=== PATIENT | male | born 1955 | race American Indian/Alaskan Native ===

== ENCOUNTER 2019-02-10 09:46 | Day surgery (SDC) | payer OTHER ==
--- NOTE | 2019-02-10 10:46 | Anesthesia Day of Surgery ---
Anesthesia Day of Surgery - Day of Surgery Patient Examined: Yes Patient H&P Reviewed: Yes Patient is NPO: Yes
--- NOTE | 2019-02-10 10:46 | Anesthesia Consultation ---
Anesthesia Consult and Med Hx Date of service: 02/10/19 - Airway Anesthetic Teeth Evaluation: Bridges (upper and bottom front) ROM Head & Neck: Adequate Mental/Hyoid Distance: Adequate Mallampati Class: Class II Intubation Access Assessment: Probably Good - Pre-Operative Health Status ASA Pre-Surgery Classification: ASA2 Proposed Anesthetic Plan: MAC - Cardiovascular System Hx Coronary Artery Disease: No (high cholesterol) - Central Nervous System Hx Psychiatric Problems: Yes (anxiety) - Gastrointestinal Hx Gastroesophageal Reflux Disease: Yes - Additional Comments Anesthesia Medical History Comments: HIV, on the meds
[2019-02-10] MEDS ORDERED: XYLOCAINE MPF 2% ONE (11:00)
[2019-02-10] MEDS ORDERED: NACL 0.9% 1000 ML 1,000 ML IV SCH (11:00)
[2019-02-10] MEDS ORDERED: DIPRIVAN 10 MG/ML IV ONE (11:17)
--- NOTE | 2019-02-10 12:04 | Operative Report ---
Operative Report Operative Report: Date of procedure: 02/10/2019 Procedure: Colonoscopy with Submucosal Injection, Multiple Cold Snare polyp ectomies, Cold Biopsy Polypectomy. Attending physician: Al Fisher M.D. Agriculture Consultant: Al Fisher M.D. Indication: Patient is a 64-year-old male who presents for screening colonoscopy. Patient has a past history of colon polyps and also history of HIV disease. This colonoscopy serves to evaluate patient so that treatment may be directed based on the findings. Consent: Informed consent was obtained after advising the patient and family regarding nature of this procedure, its indications, potential benefits as well as possible complications including but not limited to bleeding perforation and adverse reaction to medication, infection as well as other cardiopulmonary complications. An informed written and verbal consent was then obtained after due opportunity was provided for questions and answers. Monitoring: Patient was monitored continuously with pulse oximetry and electrocardiographic recordings as well as blood pressure recordings. Vital signs remained stable throughout this procedure with no untoward events. Preoperative assessment: Patient was assessed immediately prior to this procedure for capacity to tolerate monitored anesthesia care and moderate sedation as well as general anesthesia. Patient's ASA classification is 2, Mallampati class is 2, Hyomental distance is 3. Instrument: Olympus video colonoscope CF-HQ 190L Medications: Propofol given intravenously in divided doses. For details please refer to anesthesia records. Description of procedure: Patient was placed in the left lateral decubitus position after achieving sedation, a digital rectal examination was performed following which the colonoscope was introduced into the anal verge and advanced to the cecum which was identified by the cecal valve, the appendiceal orifice, as well as by the cecal strap and direct transillumination. The colonoscope was subsequently withdrawn with careful inspection of all mucosal surfaces. Patient tolerated this procedure well and was subsequently taken to the recovery room. The following findings were noted. Findings: [place] bowel preparation scale score : 5. : Patient had densely adherent thick liquid stool in the cecum and ascending colon with a score of 1, more easily liquid stool that was easily irrigated in the transverse colon with a scale of 2 and also in the descending and sigmoid colon and rectum with a scale of 2. The overall preparation therefore deemed an adequate with a scale score of less than 6. The withdrawal time from the cecum was greater than 6 minutes. Patient had diverticular of mild severity involving the ascending colon transverse colon descending colon and sigmoid colon. Patient had 2, 6-8 mm polyps in the cecum which were elevated with submucosal injection of saline and removed by snare electrocautery and retrieved. Patient had another diminutive polyp in the cecum which was removed by cold biopsy polypectomy. It measured approximately 3-4 mm and were sessile. Patient also had an 8 mm flat polyp in the transverse colon, which was elevated with submucosal injection of saline and removed by cold snare polypectomy. The rest of the colon including the descending colon sigmoid colon and rectum was normal except for significant retained stool as noted above and also diverticulosis. Close to the anal verge, patient had several papiliform hyperpigmented mucosal lesions that had the typical appearance of anal condyloma. These were felt to be substantial and therefore not easily removable by endoscopic ablation or submucosal dissection. On a retroflexed view of the anal verge, patient had internal hemorrhoids. Impression: Multiple cecal polyps status post submucosal injection and cold snare polypectomies. Cecal polyp status post cold biopsy polypectomy Transverse colon polyp status post submucosal injection and cold biopsy polypectomy. Multiple anal condyloma Inadequate colonoscopic preparation Diverticulosis. Internal hemorrhoids. Plan: Follow pathology report. High-fiber diet. Repeat colonoscopy in 1 year due to poor colonoscopic preparation Referral to surgery for removal of multiple anal condyloma
--- NOTE | 2019-02-10 12:13 | Discharge Summary ---
Short Stay Discharge Plan Activity: advance as tolerated Weight Bearing Status: Weight Bear as Tolerated Diet: regular Additional Instructions: Post Sedation D/C Instructions When you return home you may resume your regular diet unless otherwise directed. -Go directly home from the hospital and rest quietly . You may resume normal activities tomorrow. -Do NOT drive, return to work, operate any machinery or make any important personal or business decisions today. -Do NOT drink any alcohol or take nerve or sleeping drugs. They add to the effects of the medicine still present in your body. Follow up with: [facility] [Primary Care Provider] - 7 Days
[2019-02-10 12:20] VITALS: BP 127/83
== END 2019-02-10 09:47 | disposition home or self-care (01) ==
LOC: GIO 09:46
PROVIDERS: ATTEND Internal Medicine Gastroenterology
DX: Z12.11 Encounter for screening for malignant neoplasm of colon (principal); D12.0 Benign neoplasm of cecum; D12.3 Benign neoplasm of transverse colon; K57.30 Diverticulosis of large intestine without perforation or abscess without bleeding; K64.8 Other hemorrhoids; K21.9 Gastro-esophageal reflux disease without esophagitis; F41.9 Anxiety disorder, unspecified; Z86.010 Personal history of colon polyps; Z79.899 Other long term (current) drug therapy; Z79.82 Long term (current) use of aspirin
CPT/HCPCS: 88305; J2704; J7030